=== PATIENT | male | born 2000 | race Caucasian/White ===

== ENCOUNTER 2019-06-06 18:29 | Emergency (ER) | payer MEDICAID, SELFPAY ==
[2019-06-06 18:30] VITALS: BP 129/78; PULSE 83; RESP 14; TEMP 37.4; O2SAT 97; BMI 31.2
--- NOTE | 2019-06-06 19:17 | ED.VISSUMM ---
- ER Visit Summary Date of Service: 06/06/19 Chief Complaint: Dental pain History of Present Illness: The patient is a 18 M who presents with right lower dental pain that began yesterday. Patient states it is over the right lower third molar area. Patient admits to some swelling around the tooth. Patient denies any fevers or chills. Patient denies any hot or cold sensitivity. Patient denies any difficulty swallowing. Patient denies any shortness of breath. Physical Examination: Vital signs are stable. Patient is afebrile. Patient is in no acute distress. Oral mucosa is pink and moist. There is some mild gingival edema over the right lower third molar area. There is no fluctuance. There is no discharge or drainage. There is no evidence of any abscess. Oropharynx is clear. Airway is patent. Neck is supple. Trachea is midline. There is some mild anterior cervical lymphadenopathy on the right. There is no sublingual edema or erythema. Heart was regular rate and rhythm. Lungs are clear and equal bilaterally. Emergency Department Course and Treatment: Patient is allergic to penicillin. Patient was given a prescription for clindamycin. Patient was instructed to follow-up with a dentist in 5 to 7 days. Patient understood and was agreeable with the plan. All questions were answered. Disposition: Discharge home Impression: Odontalgia This note was generated with [employer] dictation software. It may contain incorrect words, spelling, and punctuation that were not noted in review of the chart prior to signing ED Disposition - Plan for ED Patient: Disposition: Home or Assisted Living Diagnosis: Odontalgia Instructions: Dental Pain Prescriptions: Clindamycin HCl [Cleocin] 300 mg PO Q6H #40 cap Prescription Printed Referrals: Dentist,Ryan [STAFF PHYSICIAN] - 5-7 Days Ann-Marie Angel MD [Primary Care Provider] - 5-7 Days
[2019-06-06 19:32] VITALS: RESP 16
--- NOTE | 2019-06-06 19:32 | ED.RN ---
REVIEWED D/C INSTRUCTIONS, FOLLOW UP CARE, PRESCRIPTION, AND S/S THAT WOULD WARRANT A RETURN TO THE ED WITH PT. PT VERBALIZED AN UNDERSTANDING AND DENIES FURTHER QUESTIONS FOR THIS RN. PT SKIN P/W/D, RESP EVEN AND UNLABORED, PT A&O X 3, NO DISTRESS NOTED. PT AMBULATED OUT OF ED, GAIT STEADY.
== END 2019-06-06 19:34 | disposition home or self-care (01) ==
LOC: ED 19:22
PROVIDERS: Emergency Provider Emergency Medicine
DX: K08.89 Other specified disorders of teeth and supporting structures (principal); E66.9 Obesity, unspecified; F17.200 Nicotine dependence, unspecified, uncomplicated; Z68.31 Body mass index [BMI] 31.0-31.9, adult
CPT/HCPCS: 99282

== ENCOUNTER 2019-07-13 18:03 | Emergency (ER) | payer MEDICAID, SELFPAY ==
[2019-07-13 18:04] VITALS: BP 110/72; PULSE 135; RESP 17; TEMP 37.2; O2SAT 98; BMI 27.3
[2019-07-13 18:14] VITALS: RESP 16
--- NOTE | 2019-07-13 18:17 | ED.DCSUM_ITS ---
History of Present Illness Chief Complaint: Nausea/Vomiting/Diarrhea Informant: Patient Onset: Yesterday Context: Gradual Onset Current Severity: Mild Maximum Severity: Mild Narrative: Patient presents with nausea, vomiting, and diarrhea that started last night. He states he had similar symptoms earlier in the week but felt well for 2 days before becoming ill again yesterday. He does report having congestion and cough with some posttussive emesis as well. His sister is ill with similar symptoms. He does not believe he had a fever but did not have a thermometer to check. - Past Medical History (1) History of tonsillectomy Status: Resolved Past Medical History - Allergies and Home Meds Allergies/Adverse Reactions: Allergies Penicillins [PCN] Allergy (Verified 07/13/19 18:04) Hives Primary Care Physician: Care Physician,No Primary [NON-STAFF] - Lives: With Family Smoking Status: Current every day smoker Review of Systems General: Denies: Chills, Fever Eyes: Denies: Visual changes - bilaterally ENT: Denies: Bilateral ear pain Cardiovascular: Denies: Chest pain Respiratory: Reports: Cough. Denies: Dyspnea Gastrointestinal: Reports: Nausea, Vomiting, Diarrhea Genitourinary: Denies: Dysuria Musculoskeletal: Reports: Myalgias Skin: Denies: Rash Neurological: Denies: Headache Physical Exam Vital Signs/Narrative: Vital Signs Temp Pulse Resp BP Pulse Ox 07/13/19 18:14 16 07/13/19 18:04 99.0 F 135 H 17 110/72 98 Inital Vital Signs reviewed: Yes General: Well nourished, Well developed Head: Normocephalic ENT: Moist mucous membranes Neck: Supple Cardiovascular: Tachycardia Respiratory: No distress, CTA bilaterally Abdomen: Soft, Nontender, Hypoactive bowel sounds Back: Nontender Extremities: Nontender Skin: Normal color Neurological: Alert, Oriented x3 Psychological: Normal affect Diagnostic/Tx/Re-eval Laboratory Results 07/13/19 07/13/19 18:35 18:35 WBC 8.8 RBC 5.19 Hgb 15.8 Hct 46.8 MCV 90.2 MCH 30.4 MCHC 33.8 RDW Std Deviation 41.6 RDW Coeff of Drea 12.6 Plt Count 149 L MPV 11.7 Immature Gran % (Auto) 0.200 Neut % (Auto) 80.4 H Lymph % (Auto) 7.7 L [place] % (Auto) 6.4 Eos % (Auto) 5.0 Baso % (Auto) 0.3 Absolute Neuts (auto) 7.1 Absolute Lymphs (auto) 0.68 L Nucleated RBC % 0 Sodium 139 Potassium 3.6 Chloride 106 Carbon Dioxide 27.0 Anion Gap 6 BUN 16 Creatinine 1.05 Estim Creat Clear Calc 108.57 Est GFR (MDRD) Af Amer 115 Est GFR (MDRD) Non-Af 95 BUN/Creatinine Ratio 15.2 Glucose 96 Calcium 9.2 - Medical Decision Making Patient was given IV fluids, Toradol, Zofran. On repeat evaluation he does feel improved. He still having some abdominal cramping. Patient be given prescription for Zofran and Bentyl. He will be referred to next doc on no doc list for follow-up as needed. ED Disposition - Plan for ED Patient: Disposition: Home or Assisted Living Diagnosis: Viral gastroenteritis Instructions: GASTROENTERITIS, Viral (4y-Adult) Prescriptions: Dicyclomine HCl [Bentyl] 20 mg PO TIDAC #20 cap Transmission Status: Pending to [facility] Ondansetron [Zofran Odt] 4 mg PO Q8H PRN PRN #10 tab PRN Reason: Nausea Transmission Status: Pending to [facility] Referrals: Mick Abrams MD [STAFF PHYSICIAN] - As Needed
[2019-07-13] MEDS: Ondansetron 4 MG/2 ML Vial IV (18:34)
[2019-07-13] MEDS: 0.9% Normal Saline 1,000 ML 1000 ML IV (18:34)
[2019-07-13] MEDS: Ketorolac 30 MG/ML Syringe IV (18:36)
[2019-07-13 18:43] LABS: Absolute Lymphocyte Count 0.68 X10^3/uL (0.83-4.51); Absolute Neutrophil Count 7.1 X10^3/uL (2.0-7.7); Basophil# 0.03 X10^3/uL; Basophil% 0.3 % (0-1); Eosinophil# 0.44 X10^3/uL; Hematocrit 46.8 % (40-54); Hemoglobin 15.8 g/dL (13.0-16.5); Lymphocyte # 0.68 X10^3/ul (4.0); Lymphocyte % 7.7 % (19-41); Mean Corp Hgb Conc 33.8 g/dL (32-36); Mean Corpuscular Hgb 30.4 pg (27.0-32.0); Mean Corpuscular Volume 90.2 fL (80-94); Mean Platelet Vol. 11.7 fl (6.2-12.0); Monocyte# 0.56 X10^3/uL; Monocyte% 6.4 % (0-10); NRBC Flagged by Analyzer 0 % (0-5); Neutrophil # 7.08 X10^3/uL (2.7-7.7); Neutrophil % 80.4 % (47-70); Platelet Count 149 K/mm3 (150-450); RBC Distribution Width CV 12.6 % (11.6-14.6); RBC Distribution Width SD 41.6 fl (35.1-43.9); Red Blood Count 5.19 M/mm3 (4.6-6.2); White Blood Count 8.8 K/mm3 (4.4-11.0)
[2019-07-13 18:56] LABS: Anion Gap 6 (5-15); BUN 16 mg/dL (7-18); BUN/Creat Ratio 15.2 RATIO (10-20); Calcium,Total 9.2 mg/dL (8.5-10.1); Chloride 106 mmol/L (98-107); Creatinine, Serum 1.05 mg/dL (0.70-1.30); EST Glomerular Filtration Rate 95 mL/min (>60); Est Glom Filt Rate - Afr Amer 115 mL/min (>60); Estimated Creatinine Clearance 108.57 ml/min; Glucose 96 mg/dL (74-106); Potassium 3.6 mmol/L (3.5-5.1); Sodium Level 139 mmol/L (136-145)
[2019-07-13 19:31] VITALS: BP 114/65; PULSE 90; RESP 16; TEMP 37.1; O2SAT 96
[2019-07-13 20:16] VITALS: BP 106/63; PULSE 85; PULSE 94; RESP 16; O2SAT 96
== END 2019-07-13 20:30 | disposition home or self-care (01) ==
PROVIDERS: Emergency Provider Emergency Medicine; Family Provider Family Medicine; PCP Family Medicine
DX: A08.4 Viral intestinal infection, unspecified (principal); R05 Cough; R09.81 Nasal congestion; F17.200 Nicotine dependence, unspecified, uncomplicated
CPT/HCPCS: 80048; 85025; 96361; 96374; 96375; 99284; J7030; J2405

== ENCOUNTER 2019-08-23 19:18 | Emergency (ER) | payer MEDICAID, SELFPAY ==
[2019-08-23 19:18] VITALS: BP 141/87; PULSE 109; RESP 16; TEMP 37.8; O2SAT 96; BMI 29.3
[2019-08-23 19:48] VITALS: PULSE 115; RESP 16
[2019-08-23] MEDS: Ipratropium/Albuterol Sulfate 3 ML AMPUL.NEB INHALATION (19:48)
[2019-08-23 20:00] LABS: Absolute Lymphocyte Count 0.78 X10^3/uL (0.83-4.51); Absolute Neutrophil Count 0.7 X10^3/uL (2.0-7.7); Basophil# 0.02 X10^3/uL; Eosinophil# 0.09 X10^3/uL; Eosinophils% 4.6 % (0-5); Hematocrit 40.5 % (40-54); Hemoglobin 14.1 g/dL (13.0-16.5); Lymphocyte # 0.78 X10^3/ul (4.0); Lymphocyte % 39.8 % (19-41); Mean Corp Hgb Conc 34.8 g/dL (32-36); Mean Corpuscular Hgb 30.5 pg (27.0-32.0); Mean Corpuscular Volume 87.7 fL (80-94); Mean Platelet Vol. 11.9 fl (6.2-12.0); Monocyte# 0.36 X10^3/uL; Monocyte% 18.4 % (0-10); NRBC Flagged by Analyzer 0 % (0-5); Neutrophil # 0.71 X10^3/uL (2.7-7.7); Neutrophil % 36.2 % (47-70); POSITIVE DIFFERENTIAL YES; Platelet Count 115 K/mm3 (150-450); RBC Distribution Width CV 12.4 % (11.6-14.6); Red Blood Count 4.62 M/mm3 (4.6-6.2)
--- NOTE | 2019-08-23 20:00 | RAD_ITS ---
STUDY: X-RAY CHEST REASON FOR EXAM: Male, 19 years old. shortness of breath TECHNIQUE: PA and lateral views of the chest. COMPARISON: None. FINDINGS: The lungs are clear and expanded. There is no demonstrated pleural abnormality. Normal size heart. Normal mediastinum and ashish. Normal visualized pulmonary arteries. Normal visualized aortic arch and descending thoracic aorta. Normal visualized thoracic spine. Normal visualized ribs, clavicles, and shoulders. There is no demonstrated abnormality of the visualized soft tissue structures of the upper abdomen. RAD/Chest PA and Lateral IMPRESSION: Normal x-ray examination of the chest. Electronically Signed: Cl Cuellar DO at 20:28 EST Tel , Service support ,
[2019-08-23 20:02] LABS: Differential Indicated SCAN CRITERIA MET
[2019-08-23] MEDS: 0.9% Normal Saline 1,000 ML 1000 ML IV (20:09)
[2019-08-23 20:19] LABS: ALB/GLOB Ratio 1.1 RATIO (0.9-2.4); AST(SGOT) 24 U/L (15-37); Alanine Aminotransfer ALT/SGPT 40 U/L (16-61); Alkaline Phosphatase 57 U/L (45-117); Anion Gap 5 (5-15); BUN 13 mg/dL (7-18); BUN/Creat Ratio 12.9 RATIO (10-20); Calcium,Total 8.9 mg/dL (8.5-10.1); Chloride 107 mmol/L (98-107); Creatinine, Serum 1.01 mg/dL (0.70-1.30); EST Glomerular Filtration Rate 99 mL/min (>60); Est Glom Filt Rate - Afr Amer 120 mL/min (>60); Estimated Creatinine Clearance 111.93 ml/min; Globulin 3.7 g/dL (2.2-4.2); Glucose 98 mg/dL (74-106); Potassium 3.6 mmol/L (3.5-5.1); Protein, Total 7.7 g/dL (6.4-8.2); Sodium Level 138 mmol/L (136-145)
--- NOTE | 2019-08-23 20:22 | ED.VISSUMM ---
- ER Visit Summary Date of Service: 08/23/19 Chief Complaint: Shortness of breath and cough History of Present Illness: The patient is a 19 M who presents with shortness of breath and cough that has been constant since yesterday. Patient states he has some pain across his chest. Patient states he has had a fever up to 100 at home. Patient admits to some occasional blurred vision. Patient states his pain does radiate into his back between his shoulder blades. Patient also admits to some dysuria. Patient denies any nausea or vomiting. Patient admits to a headache and some weakness. Physical Examination: Vital signs are stable. Patient is afebrile. Patient is in no acute distress. Oral mucosa is pink and moist. Neck is supple. Trachea is midline. There is no JVD noted. Heart was regular rate and rhythm. Lungs are clear and equal bilaterally. Abdomen is soft. Bowel sounds are normal. There is no tenderness. There is no rebound or guarding noted. Skin is warm dry. Cranial nerves II through XII are intact. There are no focal motor or sensory deficits noted. Extremities are intact. There is no calf tenderness or edema. Test Results: CBC shows a white blood cell count of 2.0 and platelet count of 115. Comprehensive metabolic profile was essentially within normal limits. Flu swab was positive for influenza B. Urinalysis was obtained because of his complaint of some dysuria. There is no evidence of urinary tract infection. Emergency Department Course and Treatment: Patient was given a DuoNeb aerosol here and IV fluids. Patient was feeling better on reevaluation. Patient was given a prescription for Tamiflu. Patient was instructed to follow-up with his primary care physician in 5 to 7 days. Patient understood and was agreeable with the plan. All questions were answered. Disposition: Discharge home Impression: Influenza B This note was generated with [email or web address] dictation software. It may contain incorrect words, spelling, and punctuation that were not noted in review of the chart prior to signing ED Disposition - Plan for ED Patient: Disposition: Home or Assisted Living Diagnosis: Influenza B Instructions: INFLUENZA (Adult) Prescriptions: Oseltamivir Phosphate [Tamiflu] 75 mg PO BID #10 cap Prescription Printed Referrals: Ann-Marie Angel MD [Primary Care Provider] - 5-7 Days
[2019-08-23 20:32] LABS: Differential Comment SCANNED; Platelet Estimate SLT DEC (ADEQ); Red Cell Morphology NORM C+C NORMAL (NORM C&C)
[2019-08-23 21:27] LABS: Bacteria 0 SEEN /hpf (None Seen); Mucous, Urine 0 SEEN /hpf (<or=2+); Red Blood Cells-Urine 0 SEEN /hpf (0-5); Squamous Epithelial Cells - UA 0 SEEN /hpf (0-5); White Blood Cells 0 SEEN /hpf (0-5)
[2019-08-23 21:43] LABS: Color, Urine Yellow (Yellow); Glucose, Dipstick Normal (Normal); Ketone-Dipstick Negative (Negative); Leukocyte Esterase-Dipstick Negative /ul (Negative); Nitrite-Dipstick Negative (Negative); Occult Blood-Urine Negative /ul (Negative); Protein-Dipstick Negative (Negative); Urine Bilirubin Dipstick Negative (Negative); Urine Clarity Clear (Clear); Urine Urobilinogen Normal (Normal)
== END 2019-08-23 22:39 | disposition home or self-care (01) ==
PROVIDERS: Emergency Provider Emergency Medicine; PCP Family Medicine
DX: J10.1 Influenza due to other identified influenza virus with other respiratory manifestations (principal); R30.0 Dysuria; Z72.0 Tobacco use
CPT/HCPCS: 71046; 80053; 81001; 85025; 87804; 94640; 96360; 96361; 99283; J7030

== ENCOUNTER 2020-02-22 19:12 | Emergency (ER) | payer MEDICAID, SELFPAY ==
[2020-02-22 19:15] VITALS: BP 161/92; PULSE 135; RESP 18; TEMP 36.6; O2SAT 98; BMI 30.4
--- NOTE | 2020-02-22 19:32 | EKG12_ITS ---
Test Reason : DYSRHYTHMIA Blood Pressure : / mmHG Vent. Rate : 110 BPM Atrial Rate : 110 BPM P-R Int : 120 ms QRS Dur : 094 ms QT Int : 334 ms P-R-T Axes : 071 046 036 degrees QTc Int : 452 ms Sinus tachycardia Otherwise normal ECG Confirmed by NOVA ALLEN, WANDY ([id number]), editor greeting card VIET MERRILL ([id number]) on 02/26/2020 9:37:40 AM Referred By: YAMEL Confirmed By:DOTTY BHATT MD
--- NOTE | 2020-02-22 19:34 | ED.VIS.GEN ---
History of Present Illness Informant: Patient Onset: Hours - 2 Context: Sudden Onset Quality: nausea Current Severity: Moderate Maximum Severity: Moderate Worsened by: n/a Relieved by: n/a Associated Symptoms: malaise, shaky; no sob, vomiting, bleeding. Narrative: Patient states that he was dating another male, and today found out that he was interacting with a female, this made him very upset and depressed, so he attempted suicide 2 hours prior to evaluation by ingesting half of a bottle of aspirin. He states that the full bottle was 245 pills, and that they were 250 mg each. He denies any other ingestion, or alcohol, he does not use any drugs. <Lázaro Mack - Last Filed: 02/23/20 00:27> <Yobani Shaikh - Last Filed: 02/23/20 07:33> Chief Complaint: Overdose Past Medical History Surgical History: tonsillectomy Smoking Status: Current every day smoker Alcohol: None Drugs: None <Lázaro Mack - Last Filed: 02/23/20 00:27> <Yobani Shaikh - Last Filed: 02/23/20 07:33> - Allergies and Home Meds Allergies/Adverse Reactions: Allergies Penicillins [PCN] Allergy (Verified 08/23/19 19:18) Hives Primary Care Physician: Ann-Marie Angel MD [Primary Care Provider] - Review of Systems General: Reports: Malaise. Denies: Chills, Fever, Sweats Eyes: Denies: Visual changes - bilaterally, Diplopia ENT: Denies: Bilateral ear pain, Rhinorrhea, Sore throat Cardiovascular: Denies: Chest pain, Palpitations Respiratory: Denies: Dyspnea, Cough, Dyspnea on exertion Gastrointestinal: Reports: Nausea. Denies: Abdominal pain, Vomiting, Diarrhea, Melena, Hematochezia Genitourinary: Denies: Dysuria, Hematuria, Frequency Musculoskeletal: Denies: Back pain, Extremity Pain Skin: Denies: Rash, Wounds Neurological: Denies: Headache, Weakness, Numbness Psych: Reports: Suicidal thoughts, Suicidal ideations <Lázaro Mack - Last Filed: 02/23/20 00:27> Physical Exam Vital Signs/Narrative: Vital Signs Temp Pulse Resp BP Pulse Ox 02/22/20 19:15 98 F 135 H 18 161/92 H 98 Inital Vital Signs reviewed: Yes General: Well nourished, Well developed, No Acute Distress Head: Normocephalic, Atraumatic Eyes: Perrl, EOMI ENT: Moist mucous membranes, No rhinorrhea Neck: Supple, Nontender, No lymphadenopathy Cardiovascular: Regular rate, Regular rhythm, No murmurs, Tachycardia Respiratory: No distress, CTA bilaterally, Chest nontender Abdomen: Soft, Nontender, Nondistended, Normal bowel sounds Back: Nontender, Normal Inspection Extremities: Nontender, No edema Skin: Normal color, No rash, No Trauma Neurological: Alert, Oriented x3, Cranial nerves II-XII grossly intact, Normal Strength, Normal Sensation Psychological: Normal affect, Normal Mood <Lázaro Mack - Last Filed: 02/23/20 00:27> Vital Signs/Narrative: Vital Signs Pulse Resp BP Pulse Ox 02/23/20 07:07 69 16 113/72 95 02/23/20 06:15 74 14 113/73 97 02/23/20 05:00 72 14 105/63 98 02/23/20 04:00 88 17 112/62 97 <Yobani Shaikh - Last Filed: 02/23/20 07:33> Diagnostic/Tx/Re-eval Laboratory Results 02/22/20 02/22/20 02/22/20 19:25 19:25 19:25 WBC 9.2 RBC 5.22 Hgb 16.2 Hct 47.8 MCV 91.6 MCH 31.0 MCHC 33.9 RDW Std Deviation 42.7 RDW Coeff of Drea 12.8 Plt Count 199 MPV 11.8 Immature Gran % (Auto) 0.300 Neut % (Auto) 73.2 H Lymph % (Auto) 16.9 L Thomas % (Auto) 6.7 Eos % (Auto) 2.2 Baso % (Auto) 0.7 Absolute Neuts (auto) 6.7 Absolute Lymphs (auto) 1.56 Nucleated RBC % 0 Specimen Type Sample Site pH Bicarbonate Actual Total CO2 Base Excess O2 Saturation ABG pCO2 ABG pO2 Chris Test O2 Delivery Device Blood Gas Notified Whom Blood Gas Notified Time Sodium 141 Potassium 3.4 L Chloride 108 H Carbon Dioxide 27.0 Anion Gap 6 BUN 15 Creatinine 1.12 Estim Creat Clear Calc 100.94 Est GFR (MDRD) Af Amer 106 Est GFR (MDRD) Non-Af 88 BUN/Creatinine Ratio 13.4 Glucose 101 Calcium 9.6 Total Bilirubin 0.80 AST 27 ALT 65 H Alkaline Phosphatase 71 Total Protein 9.0 H Albumin 5.0 Globulin 4.0 Albumin/Globulin Ratio 1.2 Urine Color Urine Clarity Urine pH Ur Specific [place] Urine Protein Urine Glucose (UA) Urine Ketones Urine Occult Blood Urine Nitrite Urine Bilirubin Urine Urobilinogen Ur Leukocyte Esterase Urine RBC Urine WBC Ur Squamous Epith Cells Urine Bacteria Urine Mucus Salicylates 10.1 Urine Opiates Screen Urine Methadone Screen Acetaminophen 9.4 L Ur Barbiturates Screen Ur Phencyclidine Scrn Ur Amphetamines Screen U Methamphetamin-MDMA U Benzodiazepines Scrn Urine Cocaine Screen U Cannabinoids Screen Ur Drug Screen Comment Ethyl Alcohol < 3.0 02/22/20 02/22/20 02/22/20 19:30 19:30 20:29 WBC RBC Hgb Hct MCV MCH MCHC RDW Std Deviation RDW Coeff of Drea Plt Count MPV Immature Gran % (Auto) Neut % (Auto) Lymph % (Auto) Thomas % (Auto) Eos % (Auto) Baso % (Auto) Absolute Neuts (auto) Absolute Lymphs (auto) Nucleated RBC % Specimen Type ART Sample Site R RADIAL pH 7.49 H Bicarbonate Actual 20.0 L Total CO2 21 Base Excess -3 L O2 Saturation 98 ABG pCO2 26.2 L ABG pO2 91 Chris Test POS O2 Delivery Device Room Air Blood Gas Notified Whom ED Blood Gas Notified Time 2028 Sodium Potassium Chloride Carbon Dioxide Anion Gap BUN Creatinine Estim Creat Clear Calc Est GFR (MDRD) Af Amer Est GFR (MDRD) Non-Af BUN/Creatinine Ratio Glucose Calcium Total Bilirubin AST ALT Alkaline Phosphatase Total Protein Albumin Globulin Albumin/Globulin Ratio Urine Color Yellow Urine Clarity Clear Urine pH 7.0 Ur Specific [place] 1.010 Urine Protein 15 H Urine Glucose (UA) Normal Urine Ketones 5 H Urine Occult Blood Negative Urine Nitrite Negative Urine Bilirubin Negative Urine Urobilinogen 1 H Ur Leukocyte Esterase 25 H Urine RBC 0 SEEN Urine WBC 0-5 SEEN Ur Squamous Epith Cells 0 SEEN Urine Bacteria RARE Urine Mucus 1+ Salicylates Urine Opiates Screen NEGATIVE Urine Methadone Screen NEGATIVE Acetaminophen Ur Barbiturates Screen NEGATIVE Ur Phencyclidine Scrn NEGATIVE Ur Amphetamines Screen NEGATIVE U Methamphetamin-MDMA NEGATIVE U Benzodiazepines Scrn NEGATIVE Urine Cocaine Screen NEGATIVE U Cannabinoids Screen NEGATIVE Ur Drug Screen Comment Ethyl Alcohol 02/22/20 02/22/20 21:40 23:45 WBC RBC Hgb Hct MCV MCH MCHC RDW Std Deviation RDW Coeff of Drea Plt Count MPV Immature Gran % (Auto) Neut % (Auto) Lymph % (Auto) Thomas % (Auto) Eos % (Auto) Baso % (Auto) Absolute Neuts (auto) Absolute Lymphs (auto) Nucleated RBC % Specimen Type Sample Site pH Bicarbonate Actual Total CO2 Base Excess O2 Saturation ABG pCO2 ABG pO2 Chris Test O2 Delivery Device Blood Gas Notified Whom Blood Gas Notified Time Sodium Potassium Chloride Carbon Dioxide Anion Gap BUN Creatinine Estim Creat Clear Calc Est GFR (MDRD) Af Amer Est GFR (MDRD) Non-Af BUN/Creatinine Ratio Glucose Calcium Total Bilirubin AST ALT Alkaline Phosphatase Total Protein Albumin Globulin Albumin/Globulin Ratio Urine Color Urine Clarity Urine pH Ur Specific [place] Urine Protein Urine Glucose (UA) Urine Ketones Urine Occult Blood Urine Nitrite Urine Bilirubin Urine Urobilinogen Ur Leukocyte Esterase Urine RBC Urine WBC Ur Squamous Epith Cells Urine Bacteria Urine Mucus Salicylates 27.8 H 27.1 H Urine Opiates Screen Urine Methadone Screen Acetaminophen 29.2 Ur Barbiturates Screen Ur Phencyclidine Scrn Ur Amphetamines Screen U Methamphetamin-MDMA U Benzodiazepines Scrn Urine Cocaine Screen U Cannabinoids Screen Ur Drug Screen Comment Ethyl Alcohol - Rhythm Strip Rhythm Strip: Sinus Tach Rate: 110 Ectopy: None - EKG Initial EKG Interpretation: No Acute Injury Pattern, Sinus Tachycardia, - - normal intervals, normal EKG other than sinus tach - Medical Decision Making Patient was given charcoal 50 mg orally. I discussed with poison control. They suspect that the patient took Excedrin, each pill contains aspirin to 50 mg, acetaminophen to 50 mg, and caffeine 65 mg. That would make sense with what the patient was seen. The initial levels that we obtained were to our levels approximately, since the patient took the medication at 1730 all at once. The initial levels showed salicylate 10, in the middle therapeutic range, and acetaminophen 7, which is very low. Poison control recommended repeat levels every 2 hours at least through 6, until there are at least 2 downtrending levels of each. Treatment with alkalinization of the urine is recommended over salicylate level of 30, and Acetadote with an acetaminophen level over 150 of at least a 4-hour level. With a 4-hour acetaminophen level of under 30, no further testing is indicated for that. With regards to the salicylates, his second level was 27.8, and his 6-hour third level was 27.1. Assuming that the 8-hour level is less, will be medically cleared for psychiatric evaluation given poison control's recommendations. I will also obtain a KUB to evaluate for the possibility of a bezoar, and a repeat BMP to rule out development of a metabolic acidosis. Discussed with oncoming emergency physician for final disposition given all of this. <Lázaro Mack - Last Filed: 02/23/20 00:27> - Medical Decision Making Patient signed out to me. I did follow-up on patient's lab work. His salicylate level is trending downward. He had two repeat lab draws showing this. He has not gotten tachypneic, and all vitals have been stable. He has been resting comfortably throughout ED stay without any complaints. Psychiatric transfer facility requested COVID screen and this is currently pending. Per poison control patient is medically cleared once salicylate has been trending down. Patient is stable for transfer at this time. <Yobani Shaikh - Last Filed: 02/23/20 07:33> ED Disposition <Lázaro Mack - Last Filed: 02/23/20 00:27> <Yobani Shaikh - Last Filed: 02/23/20 07:33> - Plan for ED Patient: Diagnosis: Suicide attempt by drug overdose, Salicylate overdose Referrals: Ann-Marie Angel MD [Primary Care Provider] -
--- NOTE | 2020-02-22 19:41 | ED.RN ---
NO OLD EKGS
[2020-02-22 19:44] LABS: Red Blood Cells-Urine 0 SEEN /hpf (0-5); Squamous Epithelial Cells - UA 0 SEEN /hpf (0-5)
[2020-02-22 19:45] LABS: Absolute Lymphocyte Count 1.56 X10^3/uL (0.83-4.51); Absolute Neutrophil Count 6.7 X10^3/uL (2.0-7.7); Basophil# 0.06 X10^3/uL; Basophil% 0.7 % (0-1); Eosinophils% 2.2 % (0-5); Hematocrit 47.8 % (40-54); Hemoglobin 16.2 g/dL (13.0-16.5); Lymphocyte # 1.56 X10^3/ul (4.0); Lymphocyte % 16.9 % (19-41); Mean Corp Hgb Conc 33.9 g/dL (32-36); Mean Corpuscular Volume 91.6 fL (80-94); Mean Platelet Vol. 11.8 fl (6.2-12.0); Monocyte# 0.62 X10^3/uL; Monocyte% 6.7 % (0-10); NRBC Flagged by Analyzer 0 % (0-5); Neutrophil # 6.74 X10^3/uL (2.7-7.7); Neutrophil % 73.2 % (47-70); Platelet Count 199 K/mm3 (150-450); RBC Distribution Width CV 12.8 % (11.6-14.6); RBC Distribution Width SD 42.7 fl (35.1-43.9); Red Blood Count 5.22 M/mm3 (4.6-6.2); White Blood Count 9.2 K/mm3 (4.4-11.0)
[2020-02-22 19:51] LABS: Color, Urine Yellow (Yellow); Glucose, Dipstick Normal (Normal); Ketone-Dipstick 5 mg/dl (Negative); Leukocyte Esterase-Dipstick 25 /ul (Negative); Nitrite-Dipstick Negative (Negative); Occult Blood-Urine Negative /ul (Negative); Protein-Dipstick 15 mg/dl (Negative); Urine Bilirubin Dipstick Negative (Negative); Urine Clarity Clear (Clear); Urine Urobilinogen 1 mg/dl (Normal)
[2020-02-22] MEDS: Ondansetron 4 MG/2 ML Vial IV (19:53)
[2020-02-22] MEDS: Activated Charcoal 50 GM/240 ML BOT PO (19:53)
[2020-02-22 19:58] LABS: Amphetamine Urine VISTA NEGATIVE (<1000 ng/mL); Barbiturate Urine VISTA NEGATIVE (< 200 ng/mL); Benzodiazepine Urine VISTA NEGATIVE (< 200 ng/mL); Cocaine Urine VISTA NEGATIVE (< 300 ng/mL); Ecstacy Urine VISTA NEGATIVE (< 500 ng/mL); Methadone Urine VISTA NEGATIVE (< 300 ng/mL); PCP Urine VISTA NEGATIVE (< 25 ng/mL); THC Urine VISTA NEGATIVE (< 50 ng/mL); Vista UDS pH Range 6
[2020-02-22 19:59] LABS: Bacteria RARE /hpf (None Seen); Mucous, Urine 1+ /hpf (<or=2+); White Blood Cells 0-5 SEEN /hpf (0-5)
[2020-02-22 20:06] LABS: ALB/GLOB Ratio 1.2 RATIO (0.9-2.4); AST(SGOT) 27 U/L (15-37); Alanine Aminotransfer ALT/SGPT 65 U/L (16-61); Alkaline Phosphatase 71 U/L (45-117); Anion Gap 6 (5-15); BUN 15 mg/dL (7-18); BUN/Creat Ratio 13.4 RATIO (10-20); Calcium,Total 9.6 mg/dL (8.5-10.1); Chloride 108 mmol/L (98-107); Creatinine, Serum 1.12 mg/dL (0.70-1.30); EST Glomerular Filtration Rate 88 mL/min (>60); Est Glom Filt Rate - Afr Amer 106 mL/min (>60); Estimated Creatinine Clearance 100.94 ml/min; Glucose 101 mg/dL (74-106); Potassium 3.4 mmol/L (3.5-5.1); Sodium Level 141 mmol/L (136-145)
[2020-02-22 20:11] LABS: Acetaminophen (Tylenol) Level 9.4 ug/mL (10.0-30.0); Alcohol, Blood (Medical)-Serum < 3.0 mg/dL; Salicylate 10.1 mg/dL (2.8-20.0)
--- NOTE | 2020-02-22 21:02 | CM.ED ---
Social Work Per Dr. Mack the soonest that patient could be medically cleared would be 23:00 today, 02/22/2020. Crisis to be consulted once patient is medically cleared. Yaritza HERNÁNDEZ, CHAVEZ
[2020-02-22 22:12] VITALS: BP 116/78; PULSE 107; RESP 16; O2SAT 98
[2020-02-22 22:15] LABS: Acetaminophen (Tylenol) Level 29.2 ug/mL (10.0-30.0); Salicylate 27.8 mg/dL (2.8-20.0)
[2020-02-22 22:17] LABS: Allen Test POS; Blood Gas Specimen Type ART; SITE R RADIAL
[2020-02-22 22:18] LABS: Base Excess -3 mmol/L (-2 to +2); O2 Delivery Device Room Air; PO2 91 mmHG (75-100); SO2 98 % (95-99); Time Given 2029; Total Carbon Dioxide 21 mmol/L; pCO2 26.2 mmHg (35-45); pH 7.49 (7.35-7.45)
[2020-02-23] VITALS (8 sets, daily range): BP systolic 104–123; BP diastolic 62–88; PULSE 69–118; RESP 14–20; TEMP 36.7; O2SAT 95–99
[2020-02-23 00:16] LABS: Salicylate 27.1 mg/dL (2.8-20.0)
--- NOTE | 2020-02-23 00:40 | RAD_ITS ---
HISTORY: salicylate overdose. eval for bezoar. nausea. EXAM: KUB COMPARISON: None FINDINGS: # of images incl. paperwork: 2 No free air is perceived. No dilated or loops of bowel are seen. There is no mass or suspicious calcification. No evidence of obstruction. RAD/Abdomen Single View (Portable) IMPRESSION: Normal abdomen. at 0139 Reported and signed by: Casey Arellano MD Electronically Signed: Casey Arellano MD at 1:38 EDT Tel , Service support ,
[2020-02-23 01:44] LABS: Salicylate 25.6 mg/dL (2.8-20.0)
[2020-02-23 01:46] LABS: Anion Gap 5 (5-15); BUN 12 mg/dL (7-18); BUN/Creat Ratio 12.4 RATIO (10-20); Calcium,Total 8.6 mg/dL (8.5-10.1); Chloride 112 mmol/L (98-107); Creatinine, Serum 0.97 mg/dL (0.70-1.30); EST Glomerular Filtration Rate 103 mL/min (>60); Est Glom Filt Rate - Afr Amer 125 mL/min (>60); Estimated Creatinine Clearance 116.55 ml/min; Glucose 94 mg/dL (74-106); Potassium 3.3 mmol/L (3.5-5.1); Sodium Level 140 mmol/L (136-145)
--- NOTE | 2020-02-23 02:00 | ED.RN ---
crisis paged to see patient at this time
--- NOTE | 2020-02-23 02:14 | ED.RN ---
information faxed to crisis at this time
--- NOTE | 2020-02-23 04:28 | ED.RN ---
poison control called and updated on patient condition. Patient has been released from poison control follow up
[2020-02-23 06:58] LABS: Probe Check PASS; Specimen Processing Control PASS
--- NOTE | 2020-02-23 07:42 | ED.RN ---
COVID RESULTS AND MEDICAL CLEARANCE FAXED TO [facility]
--- NOTE | 2020-02-23 09:59 | NURSING ---
ACCEPTED AT [facility]
--- NOTE | 2020-02-23 09:59 | NURSING ---
CALLED [facility]YS[facility], ETA IS 30 MIN
--- NOTE | 2020-02-23 10:20 | ED.RN ---
report called to [facility] as pt is accepted. no questions voiced from nurse to nurse. eta 30min. pt aware of transfer.
== END 2020-02-23 10:51 ==
PROVIDERS: Emergency Medicine; Emergency Provider Emergency Medicine; PCP Family Medicine
DX: T39.012A Poisoning by aspirin, intentional self-harm, initial encounter (principal); F17.200 Nicotine dependence, unspecified, uncomplicated
CPT/HCPCS: 36600; 74018; 80048; 80053; 80307; 80320; 80329; 81001; 82803; 85025; 87635; 93005; 96361; 96374; 99285; J7030; A4216; G0480; J2405; U0003

== ENCOUNTER 2021-01-18 05:09 | Emergency (ER) | payer MEDICAID, SELFPAY ==
[2021-01-18 05:09] VITALS: BP 151/94; PULSE 114; RESP 18; TEMP 37.1; O2SAT 96; BMI 39.0
--- NOTE | 2021-01-18 05:33 | RAD_ITS ---
HISTORY: Shortness of breath EXAMINATION/TECHNIQUE: XR Chest 1 View COMPARISON: None FINDINGS: LINES/DEVICES: youth nutritional monitor leads. LUNGS: No focal airspace consolidation. No pulmonary edema. No pleural effusion. No pneumothorax. MEDIASTINUM AND CARDIOVASCULAR STRUCTURES: Cardiac silhouette not enlarged. Central airways and mediastinal contour are unremarkable. BONES AND SOFT TISSUES: No acute findings. RAD/Chest 1 View (Portable) IMPRESSION: No radiographic evidence of acute cardiopulmonary disease. at 0649 Reported and signed by: Mehrdad Sharpe MD Electronically Signed: Mehrdad Sharpe MD at 6:48 EDT Tel , Service support ,
--- NOTE | 2021-01-18 05:33 | EKG12_ITS ---
Test Reason : SOB Blood Pressure : / mmHG Vent. Rate : 111 BPM Atrial Rate : 111 BPM P-R Int : 124 ms QRS Dur : 090 ms QT Int : 320 ms P-R-T Axes : 057 043 031 degrees QTc Int : 435 ms Sinus tachycardia Low Voltage QRS (Limb Leads) Confirmed by MEGAN ALLEN, ISRAEL ([id number]), editorial project manager SANDY LA ([id number]) on 01/22/2021 1:45:56 PM Referred By: MICHAEL Confirmed By:ISRAEL GUZMAN MD
[2021-01-18] MEDS: Ketorolac 30 MG/ML Syringe IV (05:47)
[2021-01-18 05:56] LABS: Absolute Lymphocyte Count 2.25 X10^3/uL (0.83-4.51); Absolute Neutrophil Count 5.8 X10^3/uL (2.0-7.7); Basophil% 1.1 % (0-1); Eosinophil# 0.62 X10^3/uL; Eosinophils% 6.6 % (0-5); Hematocrit 42.4 % (40-54); Hemoglobin 14.3 g/dL (13.0-16.5); Lymphocyte # 2.25 X10^3/ul (0.83-4.51); Lymphocyte % 23.9 % (19-41); Mean Corp Hgb Conc 33.7 g/dL (32-36); Mean Corpuscular Volume 91.8 fL (80-94); Monocyte# 0.53 X10^3/uL; Monocyte% 5.6 % (0-10); NRBC Flagged by Analyzer 0 % (0-5); Neutrophil # 5.83 X10^3/uL (2.7-7.7); Neutrophil % 61.7 % (47-70); Platelet Count 152 K/mm3 (150-450); RBC Distribution Width CV 13.2 % (11.6-14.6); RBC Distribution Width SD 44.9 fl (35.1-43.9); Red Blood Count 4.62 M/mm3 (4.6-6.2); White Blood Count 9.4 K/mm3 (4.4-11.0)
[2021-01-18 06:15] LABS: Anion Gap 8 (5-15); BUN 13 mg/dL (7-18); BUN/Creat Ratio 13.6 RATIO (10-20); Chloride 106 mmol/L (98-107); Creatinine, Serum 0.96 mg/dL (0.70-1.30); EST Glomerular Filtration Rate 104 mL/min (>60); Est Glom Filt Rate - Afr Amer 126 mL/min (>60); Estimated Creatinine Clearance 116.77 ml/min; Glucose 116 mg/dL (74-106); Potassium 3.5 mmol/L (3.5-5.1); Sodium Level 141 mmol/L (136-145); Troponin-I HS 5.6 pg/mL (3.0-78.5)
--- NOTE | 2021-01-18 06:16 | CT_ITS ---
STUDY: CTA CHEST REASON FOR EXAM: Male, 20 years old. Sob RADIATION DOSAGE (If Supplied By Facility): CTDIvol = ( 8.99 ) mGy, DLP = ( 517.12 ) mGycm TECHNIQUE: The examination was performed with the intravenous administration of IV 100mL Isovue-370. Post-processing of the angiographic images was performed, with multiplanar reformation and 3D reconstruction. Individualized dose optimization techniques were used for this CT. COMPARISON: Chest x-ray 08/23/2019, 01/18/2021 FINDINGS: There is limited enhancement of the main pulmonary artery and right and left pulmonary arteries. There is limited enhancement of the bilateral peripheral pulmonary arteries. Allowing for the technical limitations of this study no visualized embolism. Normal thoracic aorta and visualized great vessels. There is no demonstrated aortic dissection. Normal heart and pericardium. Demonstrated slightly greater than expected for patient''s age. There is a 1.2 cm right hilar lymph node. Normal visualized trachea and bronchi. The lungs are well expanded. There is a small focus of patchy groundglass opacity within the right middle lobe. There is a peripheral nodule within the right lower lobe measuring 4.2 mm. There is subtle patchy groundglass opacity in the left upper lobe and lingula. Normal pleura. Normal chest wall structures. There are degenerative changes of thoracic spine. The liver is enlarged. CT/CTA Chest W/WO Contrast IMPRESSION: Limited contrast bolus, Limited study no visualized large centrally located pulmonary emboli. Subtle bilateral infiltrates primarily involving the left upper lobe lingula and right middle lobe suspicious for pneumonia. Could consider atypical infiltrates including possible Covid virus. Residual thymus slightly more prominent than expected for age. Consider follow-up laboratory values. Electronically Signed: Isha Mariano MD at 7:53 EDT Tel , Service support ,
--- NOTE | 2021-01-18 07:20 | EDS_ITS ---
HPI History of Present Illness Chief Complaint: Shortness of Breath Informant: patient Onset/Context/Timing Onset: Yesterday Context: Gradual Onset Timing: Waxes and wanes Current Severity: Mild Maximum Severity: Moderate Narrative Narrative: Patient present secondary to shortness of breath and cough. He reports URI symptoms including sore throat and runny nose. He denies fever or chills. He reports needing to make a conscientious effort to take a deep breath to get enough air in. He has more trouble breathing when he is lying down flat. Patient does report lower abdominal pain when he coughs. No vomiting or diarrhea. PFSH PFSH no medical history Home Medications doxycycline monohydrate 100 mg PO BID #20 cap 01/18/21 [Rx Last Taken Unknown] Allergy/AdvReac Type Severity Reaction Status Date / Time Penicillins [PCN] Allergy Hives Verified 01/18/21 05:13 Social History Smoking Status: Current every day smoker tobacco type: cigarettes ROS ROS ED Constitutional Constitutional ED: Denies chills or fever(s) Eyes Eyes: Denies change in vision ENT ENT ED: Reports rhinorrhea and sore throat Cardiovascular Cardiovascular: Denies chest pain Respiratory/Chest Respiratory/Chest: Reports cough and dyspnea Gastrointestinal Gastrointestinal: Denies abdominal pain, diarrhea, nausea or vomiting Genitourinary Genitourinary ED: Denies dysuria Musculoskeletal Musculoskeletal: Denies back pain Integumentary Denies rash Neurologic Neurologic: Denies headache(s) or weakness Psychiatric Psychiatric: Denies anxiety or depression Endocrine Endocrinology: Denies polydipsia or polyuria Allergic/Immunologic Allergic/Immunologic ED: Denies urticaria EXAM Physical Exam Const Vital Signs: 01/18/21 05:09 01/18/21 05:12 01/18/21 07:46 Temperature 98.8 F Temperature Source Oral Pulse Rate 114 H Respiratory Rate 18 98 H Respiratory Effort Short of Breath Respiratory Depth Normal Respiratory Pattern Normal Blood Pressure 151/94 H Blood Pressure Mean 113 Pulse Ox 96 96 Oxygen Delivery Method Room Air 01/18/21 09:10 Temperature Temperature Source Pulse Rate 96 Respiratory Rate 11 L Respiratory Effort Respiratory Depth Respiratory Pattern Blood Pressure 130/89 H Blood Pressure Mean 102 Pulse Ox 96 Oxygen Delivery Method Positive well nourished and well developed General Appearance ED: well developed HEENT Reports normocephalic and head/scalp atraumatic Eyes PERRL and EOMs intact bilaterally Neck supple Chest Wall inspection of chest normal and palpation of chest normal Resp normal respiratory effort and clear to auscultation bilaterally Cardio regular rate and regular rhythm GI normal to inspection, nondistended, normoactive bowel sounds Palpation: soft and tender other (Mild lower abdominal tenderness palpation. No guarding or rebound.) Extremity normal to inspection Neuro oriented x3 and no sensory deficits noted Sensorium / Orientation: alert Motor Exam: strength 5/5 throughout Psych mental status grossly normal Skin no rashes or lesions noted MDM MDM MDM Narrative Medical decision making narrative: Patient had EKG, chest x-ray, labs obtained. Lab Data Attestation: I reviewed the patient's lab results. Labs: Laboratory Results - last 24 hr 01/18/21 01/18/21 01/18/21 05:48 05:48 05:48 WBC 9.4 RBC 4.62 Hgb 14.3 Hct 42.4 MCV 91.8 MCH 31.0 MCHC 33.7 RDW Std Deviation 44.9 H RDW Coeff of Drea 13.2 Plt Count 152 MPV 12.0 Immature Gran % (Auto) 1.100 H Neut % (Auto) 61.7 Lymph % (Auto) 23.9 [place] % (Auto) 5.6 Eos % (Auto) 6.6 H Baso % (Auto) 1.1 H Absolute Neuts (auto) 5.8 Absolute Lymphs (auto) 2.25 Nucleated RBC % 0 D-Dimer Quant (PE/DVT) 0.60 H* Sodium 141 Potassium 3.5 Chloride 106 Carbon Dioxide 27.0 Anion Gap 8 BUN 13 Creatinine 0.96 Estim Creat Clear Calc 116.77 Est GFR (MDRD) Af Amer 126 Est GFR (MDRD) Non-Af 104 BUN/Creatinine Ratio 13.6 Glucose 116 H Calcium 9.0 Troponin I High Sens 5.6 Radiography Chest X-Ray - ED: 1 View, Read by ED Physician, Normal, Heart, Lungs and Mediastinum Diagnostic Testing: Radiology Impression Chest X-Ray 01/18/21 05:33 IMPRESSION: No radiographic evidence of acute cardiopulmonary disease. at 0649 Reported and signed by: Mehrdad Sharpe MD Electronically Signed: Mehrdad Sharpe MD at 6:48 EDT Tel , Service support , Chest CTA 01/18/21 06:16 IMPRESSION: Limited contrast bolus, Limited study no visualized large centrally located pulmonary emboli. Subtle bilateral infiltrates primarily involving the left upper lobe lingula and right middle lobe suspicious for pneumonia. Could consider atypical infiltrates including possible Covid virus. Residual thymus slightly more prominent than expected for age. Consider follow-up laboratory values. Electronically Signed: Isha Mariano MD at 7:53 EDT Tel , Service support , EKG Initial EKG: Attestation: I personally reviewed and interpreted this EKG as follows: Interpretation: Sinus Tachycardia (Sinus tach at 111. No acute ischemia.) Treatment and Re-Evaluation Comments:: Patient's D-dimer was slightly elevated. He did go for CTA of the chest which revealed possible peripheral infiltrates. This was concerning for atypical pneumonia or even Covid. Rapid Covid swab was obtained and negative. Patient be treated with a course of doxycycline. He was advised if his symptoms do not improve over the next several days he needs to be retested for Covid. He was given instructions to quarantine until he sees how his symptoms progress. Discharge Plan Triage Chief Complaint: Shortness of Breath ED Provider: Sharifa Morton Dx/Rx/DC Orders Clinical Impression: Pneumonia Instructions: ED Pneumonia (Adult) Prescriptions: New doxycycline monohydrate 100 MG capsule 100 mg PO BID Qty: 20 RF: 0 Primary Care Provider: Ann-Marie Angel Referrals: Ann-Marie Angel MD [Primary Care Provider] - 1-2 Weeks Disposition Disposition: Home, Self Care
[2021-01-18 07:46] VITALS: RESP 98; O2SAT 96
[2021-01-18 09:10] VITALS: BP 130/89; PULSE 96; RESP 11; O2SAT 96
[2021-01-18] MEDS: Doxycycline 100 MG CAPSULE PO (09:27)
[2021-01-18 09:28] VITALS: BP 126/76; PULSE 84; RESP 16; O2SAT 97
== END 2021-01-18 09:28 | disposition home or self-care (01) ==
PROVIDERS: Emergency Provider Emergency Medicine; PCP Family Medicine
DX: J18.9 Pneumonia, unspecified organism (principal); F17.210 Nicotine dependence, cigarettes, uncomplicated
CPT/HCPCS: 71045; 71275; 80048; 84484; 85025; 85379; 87426; 93005; 96374; 99285; Q9967; A4216

== ENCOUNTER 2023-01-20 10:46 | Emergency (ER) | payer MEDICAID, SELFPAY ==
[2023-01-20 10:48] VITALS: BP 140/99; PULSE 73; RESP 15; TEMP 36; O2SAT 99; BMI 28.1
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
[2023-01-20] MEDS: Ondansetron ODT 4 MG Tablet PO (11:08)
[2023-01-20] MEDS: Naproxen 500 MG Tablet PO (11:08)
== END 2023-01-20 13:50 | disposition home or self-care (01) ==
PROVIDERS: Emergency Provider Emergency Medicine; PCP Family Medicine; Visit Provider Emergency Medicine
DX: S80.01XA Contusion of right knee, initial encounter (principal); S09.90XA Unspecified injury of head, initial encounter; F17.210 Nicotine dependence, cigarettes, uncomplicated; V89.2XXA Person injured in unspecified motor-vehicle accident, traffic, initial encounter
CPT/HCPCS: 73590; 99283

== ENCOUNTER → 2023-03-16 | Outpatient (CLI) | payer MEDICAID, SELFPAY | END | disposition home or self-care (01) | LOC: MFPLAB 08:51 | PROVIDERS: PCP Family Medicine; Visit Provider Family Medicine | DX: R19.7 Diarrhea, unspecified (principal) | CPT/HCPCS: 87506 ==